=== PATIENT | male | born 1995 | race Caucasian/White ===

== ENCOUNTER 2020-06-02 20:13 | Emergency (ER) | payer OTHER, SELFPAY ==
--- NOTE | ~2020-06-02 | XR_ITS ---
EXAMINATION: XR lumbar spine 2-3V DATE: 06/02/2020 21:37 INDICATION: Back pain. TECHNIQUE: 3 views of lumbar spine were obtained. COMPARISON: None. FINDINGS: There is 9 degrees levocurvature of lumbar spine. There are compression fracture deformitie s of the anterior aspects of the superior endplates of L1, L2, and L3 without significant height loss . Intervertebral disc heights are normal. The facet joints are unremarkable. IMPRESSION: 1. Age-indeterminate compression fracture deformities of L1, L2, and L3 without significant height lo ss. Reviewed, dictated and finalized at location A. IMPRESSION: 1. Age-indeterminate compression fracture deformities of L1, L2, and L3 without significant height loss.
--- NOTE | ~2020-06-02 | XR_ITS ---
EXAMINATION: XR thoracic spine 3V DATE: 06/02/2020 21:37 INDICATION: Back pain. Seizure. TECHNIQUE: 3 views of thoracic spine on 4 radiographs were obtained. COMPARISON: Chest 2 views 03/06/2018 FINDINGS: There is 25 degrees dextroscoliosis of upper thoracic spine. Vertebral body heights and int ervertebral disc heights are normal. IMPRESSION: 1. Dextroscoliosis of thoracic spine. Reviewed, dictated and finalized at location A.
[2020-06-02 20:19] VITALS: BP 138/82; PULSE 115; RESP 18; TEMP 36.8; O2SAT 99
--- NOTE | 2020-06-02 20:28 | ECG_ITS ---
Measurements Intervals [place] Rate: 105 P: 45 UT: 142 QRS: 47 QRSD: 93 T: 44 QT: 326 QTc: 432 Interpretive Statements SINUS TACHYCARDIA ABNORMAL ECG Electronically Signed On 06-03-2020 9:43:39 CDT by Galdino Chapman D.O.
[2020-06-02 20:46] LABS: Basophils Percent Auto 0.4 % (0.2-1.2); Eosinophils Absolute Auto 0.1 K/mm3 (0-0.3); Eosinophils Percent Auto 0.7 % (0-4.4); Hematocrit 41.4 % (42.0-52.0); Hemoglobin 14.7 g/dL (14.0-18.0); Immature Granulocyte Absolute 0.16 K/mm3 (0.00-0.031); Immature Granulocyte Percent A 1.8 % (0-0.5); Lymphocytes Absolute Auto 1.85 K/mm3 (0.9-3.2); Lymphocytes Percent Auto 20.8 % (18.3-44.2); Mean Corpuscular HGB Conc 35.5 g/dl (32-36); Mean Corpuscular Hemoglobin 31.9 pg (26-34); Mean Corpuscular Volume 89.8 fl (80-100); Mean Platelet Volume 9.5 fl (7.4-10.4); Monocytes Absolute Auto 0.7 K/mm3 (0.1-0.6); Monocytes Percent Auto 7.5 % (2.6-8.5); Neutrophils Absolute Auto 6.1 K/mm3 (1.3-6.7); Neutrophils Percent Auto 68.8 % (45.5-73.1); Platelet Count Result 325 k/mm3 (150-375); Red Blood Count 4.61 M/mm3 (4.6-6.20); Red Cell Distribution Width 11.8 % (11.5-14.5); White Blood Count 8.9 K/mm3 (4.5-10.0)
--- NOTE | 2020-06-02 20:52 | ED.SEIZURE ---
HPI - Seizure General Chief Complaint: Seizure <CAMILLA Mabry Last Filed: 06/03/20 01:58> Stated Complaint: seizure <CAMILLA Mabry Last Filed: 06/03/20 01:58> Time Seen by Provider: 06/02/20 20:27 <CAMILLA Mabry Last Filed: 06/03/20 01:58> Source: patient <CAMILLA Mabry Last Filed: 06/03/20 01:58> Mode of arrival: EMS <CAMILLA Mabry Last Filed: 06/03/20 01:58> Limitations: other (patient does not remember event) <CAMILLA Mabry Last Filed: 06/03/20 01:58> History of Present Illness HPI Narrative: This is a 24 year old male that presents to the ER for possible seizure. Reports he was in the drive through line at [employer] and next thing he remembers he woke up in the ambulance feeling confused. He does have history of seizures and takes Keppra and Lamictal. Reports he has been taking his medications as prescribed. Reports mid-low back pain currently that is aching in nature and worse with movement. Denies fever, vision changes, vomiting, numbness, or weakness. <CAMILLA Mabry Last Filed: 06/03/20 01:58> Seizure History: Yes <CAMILLA Mabry Last Filed: 06/03/20 01:58> Related Data Home Medications: Home Medications Medication Instructions Recorded Confirmed lamotrigine 06/02/20 levetiracetam PO 06/02/20 <CAMILLA Mabry Last Filed: 06/03/20 01:58> Allergies/Adverse Reactions: Allergies Allergy/AdvReac Type Severity Reaction Status Date / Time No Known Allergies Allergy Unverified 03/06/18 10:19 <CAMILLA Mabry Last Filed: 06/03/20 01:58> Review of Systems Review of Systems: Narrative: CONSTITUTIONAL: Denies fever EYES: Denies visual changes RESPIRATORY: Denies cough GASTROINTESTINAL: Denies vomiting GENITOURINARY: Denies dysuria MUSCULOSKELETAL: Reports back pain, joint pain, and myalgia. NEUROLOGIC: Denies numbness, or weakness. <Tessy Soliman PA-C - Last Filed: 06/03/20 01:58> All systems reviewed & are unremarkable except as noted in HPI and below <Tessy Soliman PA-C - Last Filed: 06/03/20 01:58> PMFSH Past Medical History Medical History: Medical History (Updated 06/02/20 @ 22:38 by Tessy Soliman PA-C) History of seizures <Tessy Soliman PA-C - Last Filed: 06/03/20 01:58> Social History Social History: Social History (Updated 06/02/20 @ 20:59 by Tessy Soliman PA-C) Substance use: never <Tessy Soliman PA-C - Last Filed: 06/03/20 01:58> Exam Narrative: Exam Narrative: GENERAL: Well-appearing, well-nourished, and in no acute distress. HEAD: Normocephalic, atraumatic. EYES: PERRLA and EOMI. ENT: Nares clear, no rhinorrhea or epistaxis. Mucous membranes moist. Oropharynx without tonsillar hypertrophy exudate or other lesions. Bilateral TMs pearly joseph non-bulging NECK: Supple. No adenopathy or masses. No midline cervical spine tenderness CHEST: Clear to auscultation. No respiratory distress. No wheezes rales or rhonchi HEART: Regular rate and rhythm. No murmur heard. Normal peripheral pulses. BACK: Tender to palpation of midline lower thoracic spine and lumbar spine EXTREMITIES: Normal range of motion. No edema. Strength equal in bilateral upper and lower extremities (5/5) SKIN: Warm, dry, no rash. NEURO: No focal deficits. Alert and oriented x3. Cranial nerves II through XII grossly intact. Normal [id number] PSYCH: Normal mood and affect <Tessy Soliman PA-C - Last Filed: 06/03/20 01:58> Course RUBY ENGINEER/PA Physician Supervision For this patient encounter, I reviewed the RUBY ENGINEER or PA documentation, treatment plan, and medical decision making; and I had [id number] time with this patient. <Octavio Arciniega MD - Last Filed: 06/03/20 06:24> Consultations Consultation #1: Spoke with Dr. Howe, [facility] about patient and work-up who accepts transfer to the ED <Tessy Soliman PA-C - Last Fi
[2020-06-02 20:59] LABS: Alanine Aminotransferase 53 U/L (4-50); Albumin Level 4.7 g/dL (3.5-5.1); Alkaline Phosphatase 94 U/L (38-126); Anion Gap 15 mmol/L (8-16); Aspartate Amino Transferase 46 U/L (17-59); Bilirubin,Total 0.2 mg/dL (0.2-1.3); Blood Urea Nitrogen 10 mg/dL (9-20); Calcium 9.4 mg/dL (8.4-10.2); Carbon Dioxide 20 mmol/L (22-30); Chloride 105 mmol/L (98-107); Estimated CRCL calculation 109 ml/min; Estimated Glomerular Filt Rate > 60; Glucose 112 mg/dL (75-110); Magnesium 2.1 mg/dL (1.6-2.3); Potassium 4.3 mmol/L (3.4-5.0); Sodium 140 mmol/L (137-145)
[2020-06-02] MEDS: SODIUM CHLORIDE 0.9% IV 1,000 ML 999 ML IV CONT (21:04)
[2020-06-02 21:07] VITALS: BP 127/87; PULSE 98; RESP 18; O2SAT 98
[2020-06-02 22:18] LABS: Add Urine Microscopic? YES; Appearance Urine Clear (Clear); Bacteria Urine Trace /hpf; Bilirubin Urine Negative (Negative); Blood Urine 1+ (Negative); Color Urine Straw (Yellow); Glucose Urine UA Negative (Negative); Ketones Urine Negative (Negative); Leukocyte Esterase Ur Negative LEU/UL (Negative); Mucus Urine Rare /lpf; Nitrate Urine Negative (Negative); Protein Urine 1+ mg/dL (Negative); Specific Grav Ur 1.011 (1.001-1.035); Urobilinogen Urine Negative mg/dL (<2.0); WBC Urine 0-3 /hpf
[2020-06-02] MEDS: MORPHINE SULFATE (*CRX) 4 MG/ML INJ IV PUSH (22:21)
[2020-06-02] MEDS: ONDANSETRON INJ 4 MG/2 ML VIAL IV PUSH (22:21)
[2020-06-02 22:31] LABS: Amphetamine Screen Urine Negative (Negative); Barbiturate Screen Urine Negative (Negative); Benzodiazepines Screen Urine Negative (Negative); Cannabinoid Screen Urine Negative (Negative); Cocaine Screen Urine Negative (Negative); Methadone Screen Urine Negative (Negative); Opiate Screen Urine Negative (Negative); Phencyclidine Screen Urine Negative (Negative)
[2020-06-02 22:46] VITALS: BP 134/83; PULSE 89; RESP 20
--- NOTE | 2020-06-02 22:48 | PC.NURSE ---
made contact with [facility] and [facility] to transfer patient to [facility]. all companies declined. made contact with thomas. eta [phone]
[2020-06-03] VITALS: BP 124/67; PULSE 91; RESP 18; O2SAT 98
[2020-06-03 01:28] VITALS: BP 110/63; PULSE 88; RESP 18; O2SAT 96
--- NOTE | 2020-06-03 02:04 | PC.NURSE ---
thomas has arrived
[2020-06-07 22:10] LABS: Levetiracetam Keppra 25.3 mcg/mL (12.0-46.0)
[2020-06-08 07:05] LABS: Lamotrigine Lamictal 1.7 mcg/mL (4.0-18.0)
== END 2020-06-03 02:19 | disposition short-term general hospital (02) ==
PROVIDERS: Physician Assistant; Emergency Provider Emergency Medicine
DX: S32.018A Other fracture of first lumbar vertebra, initial encounter for closed fracture (principal); S32.028A Other fracture of second lumbar vertebra, initial encounter for closed fracture; S32.038A Other fracture of third lumbar vertebra, initial encounter for closed fracture; G40.909 Epilepsy, unspecified, not intractable, without status epilepticus; R00.0 Tachycardia, unspecified; X58.XXXA Exposure to other specified factors, initial encounter
CPT/HCPCS: 36415; 72072; 72100; 80053; 80175; 80177; 80307; 81001; 83735; 85025; 93005; 96361; 96365; 96375; 99285; J0131; J2270; J2405; J7030